=== PATIENT | female | born 1980 | race Hispanic/Latino ===

== ENCOUNTER 2017-08-09 10:54 | Outpatient (CLI) | payer BC ==
--- NOTE | 2017-08-09 15:57 | Mammography Report ---
BILATERAL DIGITAL SCREENING MAMMOGRAM with CAD: 08/09/17 10:54:00 CLINICAL: Routine screening. COMPARISON: None available. Her last mammogram was at [facility]. FINDINGS: The breasts are mostly fatty with bilateral residual retroareolar heterogeneously dense fibroglandular structures.No mass, architectural distortion or suspicious calcifications. IMPRESSION: No mammographic evidence of malignancy. BI-RADS CATEGORY: 1 -- Negative RECOMMENDATION: Routine mammographic screening in one year. COMMENT: Patient follow-up letters are generated by our [employer] application.
== END 2017-08-09 10:55 | disposition home or self-care (01) ==
LOC: SPVWC 10:54
PROVIDERS: ATTEND Obstetrics & Gynecology
DX: Z12.31 Encounter for screening mammogram for malignant neoplasm of breast (principal)
CPT/HCPCS: 77067

== ENCOUNTER 2018-08-15 14:07 | Outpatient (CLI) | payer BC ==
--- NOTE | 2018-08-15 15:24 | Mammography Report ---
BILATERAL DIGITAL SCREENING MAMMOGRAM with CAD: 08/15/18 14:07:00 CLINICAL: Routine screening. COMPARISON: 08/09/17 FINDINGS: There are bilateral retroareolar areas of heterogeneously dense fibroglandular densities.No mass, architectural distortion or suspicious calcifications. IMPRESSION: No mammographic evidence of malignancy. BI-RADS CATEGORY: 1 -- Negative RECOMMENDATION: Routine mammographic screening in one year. COMMENT: Patient follow-up letters are generated by our [employer] application.
== END 2018-08-15 14:08 | disposition home or self-care (01) ==
LOC: SPVWC 14:07
PROVIDERS: ATTEND Obstetrics & Gynecology
DX: Z12.31 Encounter for screening mammogram for malignant neoplasm of breast (principal)
CPT/HCPCS: 77067